=== PATIENT | female | born 1965 | race Caucasian/White ===

== ENCOUNTER → 2019-01-06 10:19 | Outpatient (CLI) | payer BC, SELFPAY ==
--- NOTE | 2019-01-06 10:26 | MM_ITS ---
MM Dig screening mamm BI w/CAD CAD Screening COMPARISON: None, patient has had previous mammograms but they cannot be located INDICATION: There is a history of breast cancer patient's mother diagnosed in her 40s TECHNIQUE: Standard CC and MLO images were obtained. R2 CAD reviewed. FINDINGS: The breasts are composed primarily of fat with minimal scattered fibroglandular densities in each breast. There are 3 small benign-appearing nodular densities upper central portion of the left breast likely tiny cysts. There is a benign-appearing calcification right breast. There is a tiny benign-appearing nodular density inner quadrant right breast. There is faint arterial calcification right breast. IMPRESSION: Fatty type breast parenchyma with 3 small nodular lesions left breast likely small cyst however since are no previous studies available for comparison recommend the patient return for 6 month follow-up left mammogram to evaluate for interval stability BI-RADS Category: 3 Probably Benign Finding Short Term Follow-up RECOMMENDED FOLLOW-UP: 6M - 6 MONTH FOLLOW-UP (A letter has been sent to the patient regarding results of the study.)
== END ==
PROVIDERS: PCP Emergency Medicine; Visit Provider Emergency Medicine
DX: Z12.31 Encounter for screening mammogram for malignant neoplasm of breast (principal)
CPT/HCPCS: 77067

== ENCOUNTER → 2019-07-16 12:41 | Outpatient (CLI) | payer BC, SELFPAY ==
--- NOTE | 2019-07-16 12:50 | MM_ITS ---
PROCEDURE: MM DIG MAMM DX UNILAT LT CAD CLINICAL INDICATION: 6 MO FU Follow-up abnormal mammogram COMPARISON: [facility] MM Dig screening mamm BI w/CAD from 01/06/2019 TECHNIQUE: Standard CC and MLO images were obtained. R2 CAD reviewed. FINDINGS: Average fibroglandular tissue. 3 benign-appearing nodules are once again noted in the central aspect of the left breast and do not appear significantly changed. These measure up to six mm. The no malignant appearing mass or malignant-appearing microcalcification. IMPRESSION: Benign appearing nodule central aspect of the left breast unchanged. No evidence of malignancy. Suggest return to bilateral screening in December 2019 which would be in 6 months BI-RAD Category: 2 Benign Finding(s) FOLLOW-UP: 6M 6Month Follow-up (A letter has been sent to the patient regarding results of the study.) Dictated by: Tha Davis MD 07/21/2019 09:25 Electronically signed by Tha Davis MD in [place] 07/21/2019 09:25
== END ==
PROVIDERS: PCP Emergency Medicine; Visit Provider Emergency Medicine
DX: R92.8 Other abnormal and inconclusive findings on diagnostic imaging of breast (principal)
CPT/HCPCS: 77065